=== PATIENT | male | born 1950 | race Caucasian/White ===

== ENCOUNTER → 2017-05-26 | Outpatient (CLI) | payer MEDICARE ==
[~2017-05-26] MED LIST: ACET325 PO; ALBUTEROL MDI; ASCO500 PO; ATOR20 PO; Augmentin 875-1 EACH PO; BELSOMRA10 MG PO; BUDE6HFA INH; CARI350; CHOL10002 PO; CLON.1 PO; CYCL10 PO; DOCU100 PO; DULO60; GUAI600T33 PO; HYDACE10B PO; HYDACE5; HYDCHL25 PO; Hair, Skin & N1 EACH PO; META400; META800 PO; METF500C PO; METO25ER PO; MIRT15 PO; MIRT30 PO; MORP30ER PO; OMEP20ER PO; ONDA4ODT MM; OXYASA5T; OXYC1TAB11 PO; Omeprazole20 M1 PO; SACC250C PO; TRAZ100; TRAZ50; VENL150ER PO; Zanaflex4 M1 PO
== END | disposition home or self-care (01) ==
LOC: LAB SHORT 07:51
DX: Z53.9 Procedure and treatment not carried out, unspecified reason (principal)

== ENCOUNTER → 2017-11-24 | Outpatient (CLI) | payer OTHER ==
[~2017-11-24] MED LIST changes: -ACET325 PO; -ASCO500 PO; -ATOR20 PO; -Augmentin 875-1 EACH PO; -BELSOMRA10 MG PO; -DOCU100 PO; -GUAI600T33 PO; -Hair, Skin & N1 EACH PO; -METF500C PO; -MIRT15 PO; -ONDA4ODT MM; -OXYC1TAB11 PO; -Omeprazole20 M1 PO; -SACC250C PO; -VENL150ER PO; -Zanaflex4 M1 PO
== END ==
LOC: LAB 14:34 → LAB SHORT 14:34
DX: K14.0 Glossitis (principal); J02.9 Acute pharyngitis, unspecified
CPT/HCPCS: 87102

== ENCOUNTER 2019-07-13 13:44 | Emergency (ER) | payer OTHER ==
[~2019-07-13] VITALS: Ht 185.4 cm; Wt 97.5 kg
[~2019-07-13 13:44] MED LIST changes: +ACET325 PO; +ASCO500 PO; +ATOR20 PO; +Augmentin 875-1 EACH PO; +BELSOMRA10 MG PO; +DOCU100 PO; +GUAI600T33 PO; +Hair, Skin & N1 EACH PO; +METF500C PO; +MIRT15 PO; +ONDA4ODT MM; +OXYC1TAB11 PO; +Omeprazole20 M1 PO; +SACC250C PO; +VENL150ER PO; +Zanaflex4 M1 PO
[2019-07-13 15:51] LABS: BASOPHILS ABSOLUTE AUTO 0.03 K/mm3 (0.00-0.23); BASOPHILS PERCENT AUTO 1 % (0-2); EOSINOPHILS ABSOLUTE AUTO 0.12 K/mm3 (0.00-0.68); EOSINOPHILS PERCENT AUTO 2 % (0-6); Hematocrit 38.2 % (37.0-53.0); Hemoglobin 12.2 g/dL (13.5-17.5); IMMATURE GRAN ABSOLUTE AUTO 0.01 K/mm3 (0.00-0.10); IMMATURE GRAN PERCENT AUTO 0 % (0-1); LYMPHOCYTES ABSOLUTE AUTO 2.58 K/mm3 (0.84-5.20); LYMPHOCYTES PERCENT AUTO 39 % (21-46); MONOCYTES ABSOLUTE AUTO 0.54 K/mm3 (0.16-1.47); MONOCYTES PERCENT AUTO 8 % (4-13); Mean Corpuscular HGB Conc 31.9 g/dL (31.5-36.5); Mean Corpuscular Volume 88 fL (80-100); Mean Platelet Volume 10.2 fL (9.1-12.4); NEUTROPHILS ABSOLUTE AUTO 3.32 K/mm3 (1.96-9.15); NEUTROPHILS PERCENT AUTO 50 % (41-73); Platelet Count 219 K/mm3 (150-400); RDW Coefficient Variation 13.6 % (11.7-14.2); Red Blood Cell Count 4.36 M/mm3 (4.30-5.90)
[2019-07-13 16:15] LABS: Alanine Aminotransfer (ALT/SGP 26 U/L (12-78); Albumin, Blood 3.2 g/dL (3.4-5.0); Albumin/Globulin Ratio 0.7 (0.8-1.8); Alk Phos 89 U/L (50-136); Anion Gap 6 mmol/L (6-16); Aspartate Aminotrans (AST/SGOT 22 U/L (12-37); Bilirubin, Total 0.2 mg/dL (0.1-1.0); Blood Urea Nitrogen 7 mg/dL (8-24); Bun/Creatinine Ratio 8.7 (12.0-20.0); CO2, Blood 29 mmol/L (21-32); Calcium, Blood 9.1 mg/dL (8.5-10.1); Chloride, Blood 101 mmol/L (98-108); Creatinine, Blood 0.81 mg/dL (0.60-1.20); Globulin, Blood 4.7 g/dL (2.2-4.0); Glomerular Filtration Rate >60 (60-); Glucose, Blood 116 mg/dL (70-99); Potassium, Blood 3.7 mmol/L (3.5-5.5); Sodium, Blood 136 mmol/L (136-145); Total Protein, Blood 7.9 g/dL (6.4-8.2); Troponin I <0.015 ng/mL (0.000-0.040)
[2019-07-13] MEDS ORDERED: Lasix20 MG PO (17:19)
[2019-07-13] MEDS ORDERED: K-Dur10 MEQ PO (17:19)
== END 2019-07-13 17:23 | disposition home or self-care (01) ==
LOC: ER 13:44
PROVIDERS: Physician Assistant
DX: R60.0 Localized edema (principal); I10 Essential (primary) hypertension; K21.9 Gastro-esophageal reflux disease without esophagitis; J44.9 Chronic obstructive pulmonary disease, unspecified; F17.210 Nicotine dependence, cigarettes, uncomplicated; Z79.899 Other long term (current) drug therapy; Z79.84 Long term (current) use of oral hypoglycemic drugs
CPT/HCPCS: 36415; 71046; 80053; 83880; 84484; 85025; 93005; 93010; 99285-25

== ENCOUNTER 2020-02-19 12:10 | Emergency (ER) | payer OTHER ==
[~2020-02-19] VITALS: Ht 185.4 cm; Wt 83.9 kg
[~2020-02-19 12:10] MED LIST changes: +K-Dur10 MEQ PO; +Lasix20 MG PO
[2020-02-19] MEDS ORDERED: ONDA4ODT MM (12:23)
[2020-02-19] MEDS ORDERED: Percocet 5-3251 EACH PO (12:23)
== END 2020-02-19 12:29 | disposition home or self-care (01) ==
LOC: ER 12:10
DX: M54.2 Cervicalgia (principal); F17.210 Nicotine dependence, cigarettes, uncomplicated; Z79.899 Other long term (current) drug therapy; Z79.84 Long term (current) use of oral hypoglycemic drugs
CPT/HCPCS: 99282

== ENCOUNTER 2020-07-28 09:26 | Day surgery (SDC) | payer OTHER ==
[~2020-07-28] VITALS: Ht 185.4 cm; Wt 78.9 kg
[~2020-07-28 09:26] MED LIST changes: +Percocet 5-3251 EACH PO
--- NOTE | 2020-07-28 12:28 | NUR ---
07/28/20 1228 MADELEINE THOMAS History, Chart, Medications and Allergies reviewed before start of procedure. 3-LEAD EKG REVIEWED WITH PHYSICIAN PRIOR TO START OF PROCEDURE. MONITOR INTACT WITH CONTINUOUS PULSE OXIMETRY AND INTERMITTENT BP. O2 VIA N/C INTACT THROUGHOUT SEDATION/PROCEDURE. PATIENT DETERMINED TO BE ASA APPROPRIATE FOR PROPOFOL SEDATION PRIOR TO START OF PROCEDURE BY DR. MATOS.
--- NOTE | 2020-07-28 14:05 | NUR ---
PT OUR VIA EC. RIDE WAITING. ALL DC INSTRUCTIONS GONE OVER, IV DC'D. NIR PO FLUIDS.
== END 2020-07-28 14:05 | disposition home or self-care (01) ==
LOC: ORSCMMR 09:26 → ORD 10:30 → ORSCMMR 14:05
PROVIDERS: Internal Medicine Gastroenterology
PROC: 0DB78ZX Excision of Stomach, Pylorus, Via Natural or Artificial Opening Endoscopic, Diagnostic (ICD-10-PCS; principal; 2020-07-28 10:30)
PROC: 0DB48ZX Excision of Esophagogastric Junction, Via Natural or Artificial Opening Endoscopic, Diagnostic (ICD-10-PCS; principal; 2020-07-28 10:30)
PROC: 0DB98ZX Excision of Duodenum, Via Natural or Artificial Opening Endoscopic, Diagnostic (ICD-10-PCS; principal; 2020-07-28 10:30)
PROC: 0DB58ZX Excision of Esophagus, Via Natural or Artificial Opening Endoscopic, Diagnostic (ICD-10-PCS; principal; 2020-07-28 10:30)
DX: R11.2 Nausea with vomiting, unspecified (principal); K21.9 Gastro-esophageal reflux disease without esophagitis; R10.13 Epigastric pain; K29.70 Gastritis, unspecified, without bleeding; R63.4 Abnormal weight loss; J44.9 Chronic obstructive pulmonary disease, unspecified; E11.9 Type 2 diabetes mellitus without complications; E78.00 Pure hypercholesterolemia, unspecified; F17.210 Nicotine dependence, cigarettes, uncomplicated; Z79.899 Other long term (current) drug therapy; Z79.84 Long term (current) use of oral hypoglycemic drugs
CPT/HCPCS: 82947; 88305; 88342; A9270; J2250; J2704; J7120

== ENCOUNTER 2020-09-26 00:02 | Emergency (ER) | payer OTHER ==
[~2020-09-26] VITALS: Ht 188 cm; Wt 88.5 kg
[2020-09-26] MEDS ORDERED: SEROQUEL50 MG PO (00:22)
[2020-09-26] MEDS ORDERED: ZOLPIDEM TARTRA10 MG PO (00:23)
[2020-09-26] MEDS ORDERED: NEURONTIN300 MG PO (00:23)
== END 2020-09-26 01:36 | disposition home or self-care (01) ==
LOC: ER 00:02
DX: F19.10 Other psychoactive substance abuse, uncomplicated (principal); R41.82 Altered mental status, unspecified; I10 Essential (primary) hypertension; K21.9 Gastro-esophageal reflux disease without esophagitis; J44.9 Chronic obstructive pulmonary disease, unspecified; F17.210 Nicotine dependence, cigarettes, uncomplicated; Z79.899 Other long term (current) drug therapy
CPT/HCPCS: 36415; 93005; 93010; 96374; 96375; 99285-25; J2310; J2405

== ENCOUNTER → 2020-10-21 | Outpatient (CLI) | payer OTHER ==
[~2020-10-21] MED LIST changes: +NEURONTIN300 MG PO; +SEROQUEL50 MG PO; +ZOLPIDEM TARTRA10 MG PO
== END | disposition home or self-care (01) ==
LOC: LAB 12:00 → LAB SHORT 12:00
DX: L08.9 Local infection of the skin and subcutaneous tissue, unspecified (principal)
CPT/HCPCS: 87070; 87205